=== PATIENT | male | born 1975 | race Caucasian/White ===

== ENCOUNTER 2018-07-27 08:25 | Emergency (ER) | payer MEDICAID ==
[~2018-07-27] VITALS: Ht 182.9 cm; Wt 95.3 kg
[~2018-07-27 08:25] MED LIST: AMLO10TA12 PO; LISI40TA PO
[2018-07-27 11:23] VITALS: BP 127/76
== END 2018-07-27 11:29 | disposition home or self-care (01) ==
LOC: ER 08:27
DX: F41.9 Anxiety disorder, unspecified (principal); I10 Essential (primary) hypertension; F17.210 Nicotine dependence, cigarettes, uncomplicated; Z79.899 Other long term (current) drug therapy
CPT/HCPCS: 93005; 94761

== ENCOUNTER 2018-08-03 15:04 | Emergency (ER) | payer MEDICAID ==
[~2018-08-03] VITALS: Ht 182.9 cm; Wt 102.1 kg
[2018-08-03] MEDS ORDERED: ASPirin 81 mg TAB PO ONE (15:45)
[2018-08-03 16:30] LABS: Basophils # (auto) 0 uL; Hemoglobin 14.3 g/dL (13.5-17.5); Lymphocytes # (auto) 1.9 uL; Monocytes # (auto) 0.5 uL; Neutrophils # (auto) 3.2 uL; White Blood Cell 5.7 10^3/uL (4.4-10.8)
[2018-08-03 16:34] LABS: Basophils % (auto) 0.3 % (0.0-2.0); Eosinophils # (auto) 0.2 uL; Hematocrit 42.9 % (41.0-53.0); Lymphocytes % (auto) 32.9 % (10.0-50.0); Mean Corpuscular Hemoglobin 25.4 pg (28.0-32.0); Mean Corpuscular Hgb Conc. 33.4 g/dL (32.0-36.0); Monocytes % (auto) 8.2 % (0.0-12.0); Neutrophils % (auto) 55.6 % (37.0-80.0); Nucleated Red Blood Cells % 0.2 %; Platelet Count (auto) 231 10^3/uL (140-450); Red Blood Cells 5.65 10^6/uL (4.5-5.90); Red Cell Distribution Width 14.2 % (11.8-14.3)
[2018-08-03 16:50] LABS: Albumin 4.6 g/dL (3.4-5.0); Anion Gap 8 (5-15); Blood Urea Nitrogen 13 mg/dL (7-18); Calcium 9.2 mg/dL (8.5-10.1); Carbon Dioxide 27 mmol/L (21-32); Chloride 106 mmol/L (98-107); Glucose 95 mg/dL (74-106); Potassium 3.8 mmol/L (3.5-5.1); Sodium 141 mmol/L (136-145)
[2018-08-03 16:53] LABS: Alanine Aminotransferase 42 U/L (16-61); Aspartate Aminotransferase 17 U/L (15-37); BUN/Creatinine Ratio 12.1; GFR African American 97 mL/min; GFR Non-African American 80 mL/min
[2018-08-03 16:57] LABS: Alkaline Phosphatase 49 U/L (45-117); Bilirubin, Total 0.4 mg/dL (0.2-1.0); Total Protein 8.4 g/dL (6.4-8.2)
[2018-08-03 17:39] VITALS: BP 137/78
== END 2018-08-03 17:48 | disposition home or self-care (01) ==
LOC: ER 15:04
DX: F41.9 Anxiety disorder, unspecified (principal); I10 Essential (primary) hypertension; F17.210 Nicotine dependence, cigarettes, uncomplicated
CPT/HCPCS: 36415; 80053; 84484; 85025; 93005